=== PATIENT | male | born 1965 | race Caucasian/White ===

== ENCOUNTER → 2023-03-15 | Outpatient (CLI) | payer OTHER ==
[2023-03-16 15:57] LABS: Stool Occult Bld Immuno 1 Negative (NEGATIVE)
== END ==
LOC: LAB 09:30 → LAB SHORT 09:30
PROVIDERS: Family Medicine
DX: Z12.11 Encounter for screening for malignant neoplasm of colon (principal)
CPT/HCPCS: G0328

== ENCOUNTER 2023-05-17 08:06 | Day surgery (SDC) | payer OTHER ==
[~2023-05-17] VITALS: Ht 172.7 cm; Wt 94.6 kg
[2023-05-17] MEDS ORDERED: CELE100 PO (08:26)
--- NOTE | 2023-05-17 11:00 | NUR ---
05/17/23 1100 Shalini Reddy LATE ENTRY 1000: SURGEON NOTIFIED THAT PT LAST TOOK CELEBREX 48 HRS AGO
--- NOTE | 2023-05-17 11:17 | NUR ---
05/17/23 Mae7 Cely Hartley PT IS IN BEACH CHAIR, RIGHT ARM ON ARM BOARD WITH GEL PADDING UNDER ARM AND SECURED. WEDGE PILLOW UNDER KNEES AND LEGS AND TWO SAFETY STRAPS SECURING LOWER BODY. KIDNEY BOSTERS BILATERALLY IN PLACE AND HEAD SECURED WITH FOAM REST.
[2023-05-17 12:27] VITALS: BP 150/103
--- NOTE | 2023-05-17 13:54 | NUR ---
05/17/23 1354 Javed Olguin IV REMOVED INTACT. SITE WNL.
== END 2023-05-17 13:45 | disposition home or self-care (01) ==
LOC: ORSCSDS 08:06
PROVIDERS: Orthopaedic Surgery Sports Medicine
PROC: 0RNK4ZZ Release Left Shoulder Joint, Percutaneous Endoscopic Approach (ICD-10-PCS; principal; 2023-05-17 09:30)
DX: M75.122 Complete rotator cuff tear or rupture of left shoulder, not specified as traumatic (principal); M75.42 Impingement syndrome of left shoulder; M19.012 Primary osteoarthritis, left shoulder; M75.52 Bursitis of left shoulder
CPT/HCPCS: C1713; J0171; J0690; J1100; J2250; J2371; J2405; J2704; J3010; J7120